=== PATIENT | female | born 1940 | race Caucasian/White ===

== ENCOUNTER 2016-06-30 05:18 | Inpatient (IN) | payer OTHER ==
[~2016-06-30] VITALS: Ht 154.9 cm; Wt 62.5 kg
[2016-06-30] VITALS (9 sets, daily range): BP systolic 96–166; BP diastolic 33–72
[~2016-06-30 05:18] MED LIST: ALPHAGAN P100 DROP/5 BOTH EYES; AMIODARONE HCL200 MG PO; APRESOLINE25 MG PO; ASCORBIC ACID500 M3 PO; ASPIR 8181 M1 PO; ASPIR-LOW81 MG PO; CARTIA XT240 MG PO; CLOPIDOGREL75 MG PO; COLACE100 MG PO; CRESTOR20 MG PO; DAILY VITE1 EAC1 PO; DIABETA2.5 MG PO; DIABETA5 MG PO; EXTRA STRENGTH500 M1 PO; FLORASTOR250 MG PO; FOLIC ACID1 MG PO; GLIPIZIDE5 MG PO; GLYBURIDE2.5 MG PO; KLOR-CON M2020 MEQ PO; LASIX20 MG PO; LEVOFLOXACIN750 MG PO; LISINOPRIL2.5 MG PO; LISINOPRIL20 MG PO; LO-DOSE ASPIRIN81 M1 PO; LOPRESSOR25 MG PO; LOVENOX40 MG/0.4 SC; LUMIGAN 0.50 DROP/22 BOTH EYES; METOPROLOL TART50 MG PO; NORVASC10 MG PO; NORVASC5 MG PO; OXAYDO5 MG PO; PROTONIX40 MG PO; SENNA PLUS TAB1 EACH PO; SENOKOT S,PE1 TABLET PO; VITAMIN D-32000 UNI2 PO; VITAMIN D31000 UNI2 PO; WOMEN'S DAILY1 EAC1 PO; ZESTORETIC 20-1 EAC1 PO
[2016-06-30 06:17] LABS: POINT-OF-CARE METER ID UU14174212
[2016-06-30 12:42] LABS: METH RESISTANT S AUREUS PCR NEGATIVE (NEGATIVE)
[2016-06-30 12:46] LABS: PROBE CHECK PASS; SPECIMEN PROCESSING CONTROL PASS
[2016-06-30] MEDS ORDERED: HYDROCODON-ACE1 EAC7 PO (13:11)
[2016-06-30 20:40] LABS: POINT-OF-CARE METER ID UU13113731
[2016-07-01] VITALS (7 sets, daily range): BP systolic 98–142; BP diastolic 51–75
[2016-07-01 21:11] LABS: POINT-OF-CARE METER ID UU14174216
[2016-07-02 02:29] VITALS: BP 157/67
[2016-07-02 07:44] LABS: POINT-OF-CARE METER ID UU13113698
[2016-07-02 08:03] VITALS: BP 144/58
[2016-07-02 11:06] LABS: POINT-OF-CARE METER ID UU14174216
[2016-07-02 11:28] VITALS: BP 144/70
[2016-07-02 16:26] VITALS: BP 148/54
== END 2016-07-02 16:30 | disposition home or self-care (01) | DRG 38 ==
LOC: 4EAST 05:18 → 2SOUTH 05:18 → 4WEST 10:54 → 2SOUTH 13:30 → 4EAST 22:12
PROVIDERS: Surgery
DX: I65.21 Occlusion and stenosis of right carotid artery (principal); J45.901 Unspecified asthma with (acute) exacerbation; R56.9 Unspecified convulsions; T41.3X5A Adverse effect of local anesthetics, initial encounter; I25.10 Atherosclerotic heart disease of native coronary artery without angina pectoris; E78.5 Hyperlipidemia, unspecified; K21.9 Gastro-esophageal reflux disease without esophagitis; E11.9 Type 2 diabetes mellitus without complications; J98.6 Disorders of diaphragm; Z79.82 Long term (current) use of aspirin; Z88.0 Allergy status to penicillin; Z95.1 Presence of aortocoronary bypass graft; Z86.73 Personal history of transient ischemic attack (TIA), and cerebral infarction without residual deficits; I25.2 Old myocardial infarction
CPT/HCPCS: 71010; 82948; 87641; 93005; 94640; 94640 76; 94799; C1768; J0330; J0690; J1644; J1650; J1815; J2250; J2370; J2405; J2710; J2720; J2795; J3010; J7120

== ENCOUNTER 2017-01-18 14:47 | Emergency (ER) | payer OTHER ==
[~2017-01-18] VITALS: Ht 154.9 cm; Wt 58.6 kg
[~2017-01-18 14:47] MED LIST changes: +HYDROCODON-ACE1 EAC7 PO
[2017-01-18 15:03] LABS: POINT-OF-CARE METER ID UU14100415
[2017-01-18] MEDS ORDERED: GLIPIZIDE5 MG PO (15:31)
[2017-01-18] MEDS ORDERED: HYDRALAZINE HCL25 MG PO (15:32)
[2017-01-18] MEDS ORDERED: ROSUVASTATIN CA20 MG PO (15:32)
[2017-01-18] MEDS ORDERED: AMLODIPINE BESY10 MG PO (15:33)
[2017-01-18] MEDS ORDERED: LATANOPROST2.5 ML BOTH EYES (15:34)
[2017-01-18 15:35] LABS: HEMATOCRIT 38.2 % (36.0-46.0); MCH 28.8 PG (29.0-34.0); MCHC 33.5 G/DL (30.0-36.0); MEAN PLAT.VOLUME 10.8 uM^3 (9.5-12.4); PLATELET COUNT 264 K/uL (156-360); RBC DIS.WIDTH-CV 12.8 % (11.8-14.6); RED BLOOD COUNT 4.44 M/uL (3.80-5.20); WHITE BLOOD COUNT 6.8 K/uL (4.1-10.2)
[2017-01-18 15:37] LABS: CARBON DIOXIDE (BICARBONATE) 26.8 MEQ/L (20-31)
[2017-01-18 15:43] LABS: CHLORIDE 101 mEq/L (99-109); POTASSIUM 4.4 mEq/L (3.7-5.4); SODIUM 133 mEq/L (136-147)
[2017-01-18 15:47] LABS: ANION GAP 12 MEQ/L (2-14)
[2017-01-18 15:49] LABS: GFR ESTIMATE (CALCULATED) 51 mL/min/
[2017-01-18 15:50] LABS: UREA NITROGEN (BUN) 15 mg/dL (9-23)
[2017-01-18 16:00] LABS: GLUCOSE 422 mg/dL (70-99)
[2017-01-18 16:42] LABS: ADD MIUA? YES; BILIRUBIN NEGATIVE; BLOOD NEGATIVE; COLOR STRAW ((YELLOW)); GLUCOSE (STRIP) >=500; KETONES NEGATIVE; LEUKOCYTES TRACE; NITRITE NEGATIVE; PROTEIN (STRIP) NEGATIVE; SPECIFIC GRAVITY 1.006 (1.000-1.030); UROBILINOGEN 0.2 MG/DL (0.2-1.0)
[2017-01-18 16:45] LABS: POINT-OF-CARE METER ID UU14100415
[2017-01-18 16:46] LABS: BACTERIA NONE SEEN /HPF; EPITHELIAL CELLS RARE /HPF; MUCUS TRACE /LPF; RED BLOOD CELLS 0-5 /HPF (0-5); UCUL ADDED? NO
[2017-01-18] MEDS ORDERED: LEVAQUIN750 MG PO (17:24)
[2017-01-18 18:17] VITALS: BP 144/79
[2017-01-18 18:23] LABS: POINT-OF-CARE METER ID UU14100415
== END 2017-01-18 18:10 | disposition home or self-care (01) ==
LOC: EME 14:47
PROVIDERS: Emergency Medicine
DX: N39.0 Urinary tract infection, site not specified (principal); E11.65 Type 2 diabetes mellitus with hyperglycemia; I25.2 Old myocardial infarction; E78.5 Hyperlipidemia, unspecified; Z95.1 Presence of aortocoronary bypass graft; Z79.84 Long term (current) use of oral hypoglycemic drugs; Z88.0 Allergy status to penicillin; Z88.6 Allergy status to analgesic agent
CPT/HCPCS: 80048; 81003; 82010; 82803; 82948; 85027; 93005; 99281; 99285; J7030